=== PATIENT | female | born 1970 | race Hispanic/Latino ===

== ENCOUNTER 2022-02-01 18:55 | Emergency (ER) | payer SELFPAY ==
[2022-02-01] MEDS ORDERED: AMOXicillin 250 MG CAP ONE (19:19)
== END 2022-02-01 19:23 | disposition home or self-care (01) ==
LOC: BURERS 18:55
DX: H60.02 Abscess of left external ear (principal)
CPT/HCPCS: 99282

== ENCOUNTER 2024-05-16 19:13 | Emergency (ER) | payer SELFPAY ==
[2024-05-16] MEDS ORDERED: Lidocaine 1% (PF) 30 ML VIAL ONE (19:32)
[2024-05-16] MEDS ORDERED: Bacitracin 1 PK ONE (19:56)
== END 2024-05-16 20:25 | disposition home or self-care (01) ==
LOC: MERGE 19:13 → BURERS 19:13
DX: L60.0 Ingrowing nail (principal); E11.9 Type 2 diabetes mellitus without complications; Z75.8 Other problems related to medical facilities and other health care
CPT/HCPCS: 11760; J2001